=== PATIENT | male | born 1965 | race Caucasian/White ===

== ENCOUNTER → 2023-07-24 06:19 | Day surgery (SDC) | payer OTHER, SELFPAY | LOC: GI 06:19 | PROVIDERS: ATTENDING PHYSICIAN Internal Medicine | DX: Z12.11 Encounter for screening for malignant neoplasm of colon (principal); D12.2 Benign neoplasm of ascending colon; D12.3 Benign neoplasm of transverse colon | CPT/HCPCS: 45385; 45380; 88305 ==